=== PATIENT | female | born 1940 | race Caucasian/White ===

== ENCOUNTER 2023-04-23 07:30 | Outpatient (RCR) | payer OTHER, SELFPAY | END 2023-07-17 10:30 | disposition home or self-care (01) | PROVIDERS: Visit Provider Family Medicine | DX: M25.552 Pain in left hip (principal); Z51.89 Encounter for other specified aftercare | CPT/HCPCS: 97110; 97112; 97140; 97161 ==

== ENCOUNTER 2024-08-04 13:53 | Outpatient (RCR) | payer MEDICARE, SELFPAY | END 2024-11-10 14:11 | disposition home or self-care (01) | PROVIDERS: PCP Family Medicine; Visit Provider Nurse Practitioner Family | DX: I73.9 Peripheral vascular disease, unspecified (principal); M79.605 Pain in left leg; Z51.89 Encounter for other specified aftercare | CPT/HCPCS: 97110; 97161 ==